=== PATIENT | female | born 1935 | race Caucasian/White ===

== ENCOUNTER 2017-10-24 22:15 | Emergency (ER) | payer MEDICARE, OTHER ==
[2017-10-24 22:35] VITALS: BP 135/74
--- NOTE | 2017-10-24 23:16 | EDM.PDOC ---
ED HPI GENERAL MEDICAL PROBLEM - General Chief Complaint: Neuro Symptoms/Deficits Stated Complaint: MEMORY ISSUES Time Seen by Provider: 10/24/17 23:00 Source of Information: Reports: Patient, Family History Limitations: Reports: Altered Mental Status, Other (Patient has significant dementia and short-term memory issues chronically.) - History of Present Illness INITIAL COMMENTS - FREE TEXT/NARRATIVE: 82-year-old female with worsening dementia, tonight was worse than her baseline when she didn't recognize her which she has not done before. She has improved and is now back to her regular confused state but it scared the family enough that they would like her evaluated. Severity: Moderate - Related Data Allergies Allergy/AdvReac Type Severity Reaction Status Date / Time No Known Allergies Allergy Verified 01/02/16 07:20 Home Meds: Home Meds Multivitamin [Multi-Vitamin Daily] 1 each PO DAILY 12/29/15 [History] Acetaminophen [Tylenol] 650 mg PO Q4H PRN tablet 01/04/16 [Rx] Past Medical History HEENT History: Reports: Impaired Vision Cardiovascular History: Reports: Other (See Below) Other Cardiovascular History: DYSLIPIDEMIA Respiratory History: Reports: None Gastrointestinal History: Reports: Other (See Below) Other Gastrointestinal History: chronic abdominal pain with negative work-up at [place] Genitourinary History: Reports: None ROUTE AGENT History: Reports: None, Musculoskeletal History: Reports: Arthritis Neurological History: Reports: None, Migraines, Other (See Below) Other Neuro History: short term memory issues Psychiatric History: Reports: Other (See Below) Other Psychiatric History: MEMORY LOSS Endocrine/Metabolic History: Reports: None Hematologic History: Reports: None Oncologic (Cancer) History: Reports: None Dermatologic History: Reports: None - Infectious Disease History Infectious Disease History: Reports: None - Past Surgical History Head Surgeries/Procedures: Reports: None HEENT Surgical History: Reports: Other (See Below) GI Surgical History: Reports: Colonoscopy, Hernia Repair/Other Female Surgical History: Reports: Hysterectomy Endocrine Surgical History: Reports: None Musculoskeletal Surgical History: Reports: None Social & Family History - Family History HEENT: Reports: Impaired Vision Cardiac: Reports: Hypertension Respiratory: Reports: None GI: Reports: None : Reports: None OBGYN: Reports: None Musculoskeletal: Reports: None Neurological: Reports: Dementia Psychiatric: Reports: None Endocrine/Metabolic: Reports: None Hematologic: Reports: None Immunologic: Reports: None Dermatologic: Reports: None Oncologic: Reports: None - Tobacco Use Smoking Status *Q: Former Smoker Years of Tobacco use: 15 Packs/Tins Daily: 1 Used Tobacco, but Quit: Yes Month/Year Tobacco Last Used: 1963 Second Hand Smoke Exposure: No - Caffeine Use Caffeine Use: Reports: Coffee - Recreational Drug Use Recreational Drug Use: No ED ROS GENERAL - Review of Systems Review Of Systems: See Below Constitutional: Denies: Fever Respiratory: Denies: Shortness of Breath Cardiovascular: Denies: Chest Pain GI/Abdominal: Denies: Abdominal Pain, Nausea, Vomiting : Reports: No Symptoms Neurological: Reports: Confusion. Denies: Headache ED EXAM, NEURO - Physical Exam Exam: See Below Exam Limited By: No Limitations General Appearance: Alert, No Apparent Distress Eye Exam: Bilateral Eye: EOMI, Normal Inspection Head Exam: Atraumatic Neck: Non-Tender Respiratory/Chest: No Respiratory Distress Cardiovascular: Regular Rate, Rhythm Neurological: Alert, No Motor/Sensory Deficits. No: Oriented x 3 (Somewhat disoriented to time, is oriented to person and place. She is calm, recognizes her family and is cooperative) Extremities: Normal Inspection. No: No Pedal Edema Psychiatric: Normal Affect, Normal Mood Skin Exam: Warm, Dry Course - Vital Signs Last Recorded V/S: Last Vital Signs Temp 96.9 F 10/24/17 22:47 Pulse 70 10/24/17 22:47 Resp 16 10/24/17 22:47 BP 135/74 10/24/17 22:47 Pulse Ox 98 10/24/17 22:47 - Orders/Labs/Meds Orders: Active Orders 24 hr Category Date Time Status Head wo Cont [CT] Stat Exams 10/24/17 23:15 Taken - Re-Assessments/Exams Free Text/Narrative Re-Assessment/Exam: 10/25/17 18:[address] without contrast showed small vessel disease as well as atrophy but nothing acute. She remained at her normal baseline and the family was comfortable taking her home. A formal neurologic evaluation was recommended if not already obtained, there may be some medication adjustments that may help. Departure - Departure Time of Disposition: 00:27 Disposition: Home, Self-Care 01 Condition: Fair Clinical Impression: Confusion Dementia Qualifiers: Dementia type: unspecified type Dementia behavioral disturbance: without behavioral disturbance Qualified Code(s): F03.90 - Unspecified dementia without behavioral disturbance - Discharge Information Instructions: Dementia, [id number] Referrals: PCP,None [Primary Care Provider] - Forms: ED Department Discharge Care Plan Goals: Consider a formal neurologic evaluation if one has not been done. Otherwise continue regular medications and follow up as needed. - My Orders Last 24 Hours: My Active Orders 10/24/17 23:15 Head wo Cont [CT] Stat - Assessment/Plan Last 24 Hours: My Active Orders 10/24/17 23:15 Head wo Cont [CT] Stat
== END 2017-10-25 00:27 | disposition home or self-care (01) ==
LOC: JP.ED 22:15
DX: F03.90 Unspecified dementia, unspecified severity, without behavioral disturbance, psychotic disturbance, mood disturbance, and anxiety (principal); R41.0 Disorientation, unspecified; Z79.899 Other long term (current) drug therapy; Z87.891 Personal history of nicotine dependence
CPT/HCPCS: 70450; 99284-25

== ENCOUNTER 2021-12-15 20:32 | Emergency (ER) | payer MEDICARE, OTHER ==
[2021-12-15] MEDS ORDERED: cefTRIAXone 1 GM in Sodium Chloride 0.9% 50 ML IV ONE (21:55)
[2021-12-15] MEDS ORDERED: Sodium Chloride 0.9% 10 ML Syringe FLUSH PRN (21:55)
[2021-12-15 23:08] VITALS: BP 158/102; PULSE 64
== END 2021-12-15 23:35 | disposition home or self-care (01) ==
LOC: JP.ED 20:32
DX: S61.451A Open bite of right hand, initial encounter (principal); L08.9 Local infection of the skin and subcutaneous tissue, unspecified; Z90.710 Acquired absence of both cervix and uterus; Z87.891 Personal history of nicotine dependence; W55.01XA Bitten by cat, initial encounter
CPT/HCPCS: 36415; 85025; 86140; 96365; 99281; 99283-25; J0696

== ENCOUNTER 2022-01-12 18:26 | Emergency (ER) | payer MEDICARE, OTHER ==
[2022-01-12 18:44] VITALS: BP 154/78; PULSE 74
[2022-01-12] MEDS ORDERED: Lidocaine 1% 5 ML VIAL INJECT ONE (19:09)
[2022-01-12] MEDS ORDERED: cefTRIAXone 2 GM, Lidocaine 1% 4.2 ML IM ONE ×2 (19:25)
[2022-01-12] MEDS ORDERED: Sodium Chloride 0.9% 10 ML Syringe FLUSH PRN (21:38)
[2022-01-12] MEDS ORDERED: cefTRIAXone 1 GM Vial ONE (21:51)
[2022-01-12] MEDS ORDERED: Lidocaine 1% 5 ML VIAL ONE (21:53)
== END 2022-01-12 21:50 ==
LOC: JP.ED 18:26
DX: S61.259A Open bite of unspecified finger without damage to nail, initial encounter (principal); L08.9 Local infection of the skin and subcutaneous tissue, unspecified; M00.9 Pyogenic arthritis, unspecified; W55.01XA Bitten by cat, initial encounter
CPT/HCPCS: 10021; 36415; 73110; 80048; 85025; 86140; 87040; 87070; 87077; 87205; 96372; 99284; J0696; 20610; 99283

== ENCOUNTER 2022-04-23 20:06 | Emergency (ER) | payer MEDICARE, OTHER ==
[2022-04-23 20:46] VITALS: BP 133/77; PULSE 62
[2022-04-23] MEDS: Diphtheria,Pertussis(Acell),Tetanus Vaccine 0.5 ML Syringe IM ONE (20:59)
[2022-04-23] MEDS: QUEtiapine 25 MG Tab PO ONE (20:59)
[2022-04-23] MEDS: Bacitracin Oint 1 GM U/D Packet TOP ONE (20:59)
== END 2022-04-23 21:17 | disposition home or self-care (01) ==
LOC: JP.ED 20:06
DX: S41.112A Laceration without foreign body of left upper arm, initial encounter (principal); Z23 Encounter for immunization; Z79.899 Other long term (current) drug therapy; Z90.710 Acquired absence of both cervix and uterus
CPT/HCPCS: 90471; 90715; 99283; A9270-GY

== ENCOUNTER 2023-04-27 14:17 | Emergency (ER) | payer MEDICARE, OTHER ==
[2023-04-27 14:47] VITALS: BP 126/66; PULSE 68
== END 2023-04-27 15:23 | disposition home or self-care (01) ==
LOC: JP.ED 14:17
DX: S81.811A Laceration without foreign body, right lower leg, initial encounter (principal)
CPT/HCPCS: 99282; 99283

== ENCOUNTER 2024-07-14 09:04 | Emergency (ER) | payer MEDICARE, OTHER ==
[2024-07-14 09:37] LABS: BASOPHILS PERCENT AUTO 0.5 % (0.1-1.3); EOSINOPHILS ABSOLUTE AUTO 0.07 K/uL (0.00-0.40); EOSINOPHILS PERCENT AUTO 1.8 % (0.0-5.4); HEMATOCRIT 35.3 % (34.3-46.0); HEMOGLOBIN 11.7 g/dL (11.2-15.5); IMMATURE GRAN PERCENT AUTO 0.3 % (0.0-0.7); LYMPHOCYTES ABSOLUTE AUTO 0.88 K/uL (0.8-3.3); LYMPHOCYTES PERCENT AUTO 23.2 % (11.4-47.7); MEAN CORPUSCULAR HEMOGLOBIN 30.2 pg (31.6-35.5); MEAN CORPUSCULAR HGB CONC 33.1 g/dL (31.6-35.5); MEAN CORPUSCULAR VOLUME 91.2 fL (81.4-99.0); MONOCYTES ABSOLUTE AUTO 0.48 K/uL (0.20-0.90); MONOCYTES PERCENT AUTO 12.6 % (3.3-12.6); NEUTROPHILS ABSOLUTE AUTO 2.34 K/uL (1.0-7.6); NEUTROPHILS PERCENT AUTO 61.6 % (40.0-78.1); PLATELET COUNT,PLT 173 K/uL (130-375); RED BLOOD CELL COUNT 3.87 M/uL (3.77-5.24); WHITE BLOOD CELL COUNT,WBC 3.8 K/uL (3.2-11.0)
[2024-07-14 09:38] LABS: BASOPHILS ABSOLUTE AUTO 0.02 K/uL (0.00-0.10); IMMATURE GRAN ABSOLUTE AUTO 0.01 K/uL (0.00-0.23)
[2024-07-14 09:59] LABS: A/G RATIO 0.9 (1.2-2.2); ALANINE AMINOTRANSFERASE,ALT 15 U/L (12-78); ALBUMIN 3.3 g/dL (3.4-5.0); ALKALINE PHOSPHATASE 89 U/L (46-116); ANION GAP 4.7 mmol/L (5.0-14.0); ASPARTATE AMNIOTRANSFERASE,AST 16 U/L (15-37); BILIRUBIN TOTAL 0.4 mg/dL (0.2-1.0); BLOOD UREA NITROGEN,BUN 19 mg/dL (7-18); CALCIUM 8.3 mg/dL (8.5-10.1); CARBON DIOXIDE,CO2 31 mmol/L (21-32); CHLORIDE,CL 106 mmol/L (100-108); CREATININE 1.5 mg/dL (0.6-1.0); ESTIMATED GFR 33 mL/min (>60); GLUCOSE RANDOM 79 mg/dL (74-106); POTASSIUM,K 4.5 mmol/L (3.6-5.2); PROTEIN TOTAL,TP 7.1 g/dL (6.4-8.2); SODIUM,NA 142 mmol/L (140-148)
[2024-07-14 10:27] LABS: APPEARANCE,URINE SLIGHTLY CLOUDY (CLEAR); BILIRUBIN,URINE NEGATIVE (NEGATIVE); COLOR,URINE YELLOW (YELLOW); GLUCOSE,URINE NEGATIVE (NEGATIVE); KETONES,URINE NEGATIVE (NEGATIVE); LEUKOCYTE ESTERASE,URINE MODERATE (NEGATIVE); NITRITE,URINE POSITIVE (NEGATIVE); OCCULT BLOOD,URINE NEGATIVE (NEGATIVE); PROTEIN,URINE 30 mg/dL (NEGATIVE); UROBILINOGEN,URINE 0.2 EU/dL (0.2-1.0)
[2024-07-14 10:34] LABS: AMORPHOUS SEDIMENT,URINE FEW; BACTERIA,URINE MANY; EPITHELIAL CELLS,URINE FEW; MUCUS,URINE NOT SEEN; WBC,URINE >100 (0-5)
[2024-07-14 10:43] VITALS: BP 133/76; PULSE 119
[2024-07-14] MEDS: cefTRIAXone 1 GM, Lidocaine 1% 2.1 ML IM ONE (11:42)
== END 2024-07-14 11:43 ==
LOC: JP.ED 09:04
DX: N30.00 Acute cystitis without hematuria (principal); E78.00 Pure hypercholesterolemia, unspecified; Z79.899 Other long term (current) drug therapy
CPT/HCPCS: 36415; 80053; 81001; 83605; 85025; 87086; 96372; 99285; J0696; 87088; 87186

== ENCOUNTER 2024-07-19 06:38 | Emergency (ER) | payer MEDICARE, OTHER ==
[2024-07-19 07:06] LABS: BASOPHILS ABSOLUTE AUTO 0.04 K/uL (0.00-0.10); BASOPHILS PERCENT AUTO 1.2 % (0.1-1.3); EOSINOPHILS ABSOLUTE AUTO 0.09 K/uL (0.00-0.40); EOSINOPHILS PERCENT AUTO 2.6 % (0.0-5.4); HEMATOCRIT 35.9 % (34.3-46.0); HEMOGLOBIN 11.8 g/dL (11.2-15.5); LYMPHOCYTES ABSOLUTE AUTO 1.02 K/uL (0.8-3.3); LYMPHOCYTES PERCENT AUTO 29.8 % (11.4-47.7); MEAN CORPUSCULAR HGB CONC 32.9 g/dL (31.6-35.5); MEAN CORPUSCULAR VOLUME 91.3 fL (81.4-99.0); MONOCYTES ABSOLUTE AUTO 0.41 K/uL (0.20-0.90); NEUTROPHILS ABSOLUTE AUTO 1.86 K/uL (1.0-7.6); NEUTROPHILS PERCENT AUTO 54.4 % (40.0-78.1); PLATELET COUNT,PLT 197 K/uL (130-375); RED BLOOD CELL COUNT 3.93 M/uL (3.77-5.24); WHITE BLOOD CELL COUNT,WBC 3.4 K/uL (3.2-11.0)
[2024-07-19 07:21] LABS: CALCIUM 8.6 mg/dL (8.5-10.1); CREATININE 1.2 mg/dL (0.6-1.0); EST CRCL DRUG DOSING (CG) 23.28 mL/min; POTASSIUM,K 4.2 mmol/L (3.6-5.2)
[2024-07-19 07:22] LABS: ANION GAP 9.2 mmol/L (5.0-14.0)
[2024-07-19 08:41] VITALS: BP 127/72; PULSE 63
== END 2024-07-19 08:25 | disposition home or self-care (01) ==
LOC: JP.ED 06:38
DX: S01.81XA Laceration without foreign body of other part of head, initial encounter (principal); S09.90XA Unspecified injury of head, initial encounter; F03.B0 Unspecified dementia, moderate, without behavioral disturbance, psychotic disturbance, mood disturbance, and anxiety; E78.00 Pure hypercholesterolemia, unspecified; Z79.899 Other long term (current) drug therapy; W01.198A Fall on same level from slipping, tripping and stumbling with subsequent striking against other object, initial encounter
CPT/HCPCS: 36415; 70450; 70486; 72125; 76377; 80048; 85025; 99284-25

== ENCOUNTER 2024-09-08 11:27 | Inpatient (IN) | payer MEDICARE, OTHER ==
[2024-09-08 11:52] LABS: BASOPHILS PERCENT AUTO 0.4 % (0.1-1.3); EOSINOPHILS ABSOLUTE AUTO 0.12 K/uL (0.00-0.40); EOSINOPHILS PERCENT AUTO 2.5 % (0.0-5.4); HEMATOCRIT 35.1 % (34.3-46.0); HEMOGLOBIN 11.5 g/dL (11.2-15.5); IMMATURE GRAN ABSOLUTE AUTO 0.04 K/uL (0.00-0.23); IMMATURE GRAN PERCENT AUTO 0.8 % (0.0-0.7); LYMPHOCYTES PERCENT AUTO 26.7 % (11.4-47.7); MEAN CORPUSCULAR HEMOGLOBIN 30.3 pg (31.6-35.5); MEAN CORPUSCULAR HGB CONC 32.8 g/dL (31.6-35.5); MEAN CORPUSCULAR VOLUME 92.6 fL (81.4-99.0); MONOCYTES ABSOLUTE AUTO 0.57 K/uL (0.20-0.90); MONOCYTES PERCENT AUTO 11.7 % (3.3-12.6); NEUTROPHILS ABSOLUTE AUTO 2.82 K/uL (1.0-7.6); NEUTROPHILS PERCENT AUTO 57.9 % (40.0-78.1); PLATELET COUNT,PLT 168 K/uL (130-375); RED BLOOD CELL COUNT 3.79 M/uL (3.77-5.24); WHITE BLOOD CELL COUNT,WBC 4.9 K/uL (3.2-11.0)
[2024-09-08] MEDS: Sodium Chloride 0.9% 500 ML IV ONE (11:52)
[2024-09-08] MEDS: Morphine 2 MG/ML SYRINGE IVPUSH ONE (11:53)
[2024-09-08 11:54] LABS: BASOPHILS ABSOLUTE AUTO 0.02 K/uL (0.00-0.10)
[2024-09-08 12:10] LABS: A/G RATIO 0.8 (1.2-2.2); ALANINE AMINOTRANSFERASE,ALT 23 U/L (12-78); ALBUMIN 3.1 g/dL (3.4-5.0); ALKALINE PHOSPHATASE 81 U/L (46-116); ANION GAP 8.3 mmol/L (5.0-14.0); ASPARTATE AMNIOTRANSFERASE,AST 23 U/L (15-37); BILIRUBIN TOTAL 0.3 mg/dL (0.2-1.0); BLOOD UREA NITROGEN,BUN 23 mg/dL (7-18); CALCIUM 8.6 mg/dL (8.5-10.1); CARBON DIOXIDE,CO2 29 mmol/L (21-32); CHLORIDE,CL 105 mmol/L (100-108); CREATININE 1.1 mg/dL (0.6-1.0); EST CRCL DRUG DOSING (CG) 27.96 mL/min; ESTIMATED GFR 48 mL/min (>60); GLUCOSE RANDOM 81 mg/dL (74-106); POTASSIUM,K 4.2 mmol/L (3.6-5.2); PROTEIN TOTAL,TP 7.1 g/dL (6.4-8.2); SODIUM,NA 142 mmol/L (140-148)
[2024-09-08] MEDS: Morphine 2 MG/ML SYRINGE IVPUSH PRN (15:04)
[2024-09-08] MEDS ORDERED: Midazolam 1 MG/ML 2 ML SDV ONE (16:43)
[2024-09-08] MEDS ORDERED: fentaNYL 100 MCG/2 ML SDV ONE (16:43)
[2024-09-08] MEDS ORDERED: Propofol 200 MG/20 ML SDV ONE (16:43)
[2024-09-08] MEDS: ceFAZolin 1 GM in Premix Bag 1 BAG IV ONE (16:55)
[2024-09-08] MEDS ORDERED: ePHEDrine 50 MG/ML SDV ONE (17:24)
[2024-09-08] MEDS ORDERED: Sodium Chloride 0.9% 10 ML ONE (17:24)
[2024-09-08] MEDS ORDERED: Acetaminophen/HYDROcodone 325-5 MG Tab PO PRN (18:14)
[2024-09-08] MEDS ORDERED: Sodium Chloride 0.9% 10 ML Syringe FLUSH PRN (19:26)
[2024-09-08] MEDS ORDERED: oxyCODONE 5 MG Tab PO PRN (19:26)
[2024-09-08] MEDS ORDERED: Ondansetron 4 MG/2 ML SDV IV PRN (19:26)
[2024-09-08] MEDS: Sodium Chloride 0.9% 1,000 ML IV SCH (21:14)
[2024-09-08] MEDS: Divalproex Sodium Delayed-Release 125 MG Cap.Sprink PO SCH (21:27)
[2024-09-08] MEDS: busPIRone 5 MG Tab PO SCH (21:28)
[2024-09-08] MEDS: Polyethylene Glycol 3350 Powder 17 GM Packet PO PRN (21:28)
[2024-09-08] MEDS: Melatonin 3 MG Tab PO SCH (21:28)
[2024-09-08] MEDS: QUEtiapine 25 MG Tab PO SCH (21:28)
[2024-09-09 06:01] LABS: HEMATOCRIT 31.9 % (34.3-46.0); HEMOGLOBIN 10.3 g/dL (11.2-15.5); MEAN CORPUSCULAR HEMOGLOBIN 30.3 pg (31.6-35.5); MEAN CORPUSCULAR HGB CONC 32.3 g/dL (31.6-35.5); MEAN CORPUSCULAR VOLUME 93.8 fL (81.4-99.0); RED BLOOD CELL COUNT 3.4 M/uL (3.77-5.24); WHITE BLOOD CELL COUNT,WBC 6.7 K/uL (3.2-11.0)
[2024-09-09] MEDS: HYDROmorphone 0.5 MG/0.5 ML Syringe IVPUSH PRN (06:09)
[2024-09-09 06:12] LABS: CALCIUM 8.1 mg/dL (8.5-10.1); EST CRCL DRUG DOSING (CG) 30.76 mL/min; MAGNESIUM 1.7 mg/dL (1.8-2.4); POTASSIUM,K 4.2 mmol/L (3.6-5.2)
[2024-09-09] MEDS: Aspirin 325 MG Tab.EC PO SCH (08:11)
[2024-09-09] MEDS: Sennosides 8.6 MG Tab PO SCH (08:12)
[2024-09-09] MEDS: Sertraline 25 MG Tab PO SCH (08:12)
[2024-09-09] MEDS: Magnesium Oxide 400 MG Tab PO SCH (08:14)
[2024-09-09] MEDS: Magnesium Sulf/Wat 2 GM/50 mL 2 GM in Premix Bag 1 BAG IV SCH (09:48)
[2024-09-09] MEDS: Acetaminophen 325 MG Tab PO PRN (13:32)
[2024-09-09] MEDS: Acetaminophen/Codeine 300-30 MG Tab PO PRN (16:30)
[2024-09-09] MEDS: Haloperidol Lactate 5 MG/ML SDV IVPUSH PRN (16:38)
[2024-09-09] MEDS ORDERED: Naloxone 0.4 MG/ML SDV IVPUSH PRN (19:32)
[2024-09-09] MEDS ORDERED: fentaNYL 50 MCG/ML SDV IVPUSH PRN (19:32)
[2024-09-09] MEDS: Ketorolac 15 MG/ML SDV IVPUSH PRN (20:31)
[2024-09-09] MEDS: Acetaminophen 650 MG Supp RECTAL SCH (20:36)
[2024-09-09] MEDS ORDERED: Acetaminophen 500 MG Tab PO SCH (21:00)
[2024-09-09] MEDS: Sodium Chloride 0.9% 500 ML IV ONE (23:36)
[2024-09-10] MEDS: Acetaminophen 325 MG Tab PO PRN (01:40)
[2024-09-10] MEDS ORDERED: Acetaminophen 650 MG Supp RECTAL PRN (01:44)
[2024-09-10 06:36] LABS: HEMATOCRIT 28.7 % (34.3-46.0); HEMOGLOBIN 9.4 g/dL (11.2-15.5); MEAN CORPUSCULAR HEMOGLOBIN 30.5 pg (31.6-35.5); MEAN CORPUSCULAR HGB CONC 32.8 g/dL (31.6-35.5); MEAN CORPUSCULAR VOLUME 93.2 fL (81.4-99.0); RED BLOOD CELL COUNT 3.08 M/uL (3.77-5.24); WHITE BLOOD CELL COUNT,WBC 6.3 K/uL (3.2-11.0)
[2024-09-10] MEDS: Acetaminophen 325 MG Tab PO SCH (10:33)
[2024-09-10 13:11] LABS: ANION GAP 6.1 mmol/L (5.0-14.0); CREATININE 1.1 mg/dL (0.6-1.0); EST CRCL DRUG DOSING (CG) 27.96 mL/min; MAGNESIUM 2.1 mg/dL (1.8-2.4)
[2024-09-10] MEDS ORDERED: Sodium Chloride 0.9% 1,000 ML IV SCH (13:15)
[2024-09-10] MEDS: Sodium Chloride 0.9% 1,000 ML IV SCH (23:08)
[2024-09-12] MEDS: traMADol 50 MG Tab PO PRN (01:24)
[2024-09-12] MEDS: Sodium Chloride 0.9% 1,000 ML IV SCH (07:45)
[2024-09-12] MEDS: Tamsulosin 0.4 MG Cap.ER PO SCH (13:57)
[2024-09-13] MEDS: Bisacodyl 10 MG Supp RECTAL PRN (07:50)
[2024-09-13] MEDS: Polyethylene Glycol 3350 Powder 17 GM Packet PO ONE (12:02)
[2024-09-14 05:45] VITALS: BP 146/86; PULSE 80
== END 2024-09-14 11:25 | disposition home or self-care (01) | DRG 522 ==
LOC: JP.ED 11:27 → JP.MS 13:51 → JP.ED 16:40
PROVIDERS: ADMIT Hospitalist; ATTEND Hospitalist
PROC: 0SRR0JA Replacement of Right Hip Joint, Femoral Surface with Synthetic Substitute, Uncemented, Open Approach (ICD-10-PCS; principal; 2024-09-08 16:00)
DX: S72.001A Fracture of unspecified part of neck of right femur, initial encounter for closed fracture (principal); E78.00 Pure hypercholesterolemia, unspecified; H54.7 Unspecified visual loss; M19.90 Unspecified osteoarthritis, unspecified site; G30.9 Alzheimer's disease, unspecified; Y92.019 Unspecified place in single-family (private) house as the place of occurrence of the external cause; F15.90 Other stimulant use, unspecified, uncomplicated; Z66 Do not resuscitate; W19.XXXA Unspecified fall, initial encounter; F02.C0 Dementia in other diseases classified elsewhere, severe, without behavioral disturbance, psychotic disturbance, mood disturbance, and anxiety; R33.9 Retention of urine, unspecified; D64.9 Anemia, unspecified; Z79.899 Other long term (current) drug therapy; Z98.890 Other specified postprocedural states; Z90.710 Acquired absence of both cervix and uterus; Y93.9 Activity, unspecified; Y92.009 Unspecified place in unspecified non-institutional (private) residence as the place of occurrence of the external cause
CPT/HCPCS: 01210-QZ; 36415; 51701; 51798; 70450; 70450-26; 72170; 72170-26; 73080-26-RT; 73080-RT; 73502-26-RT; 73502-RT; 80048; 80053; 83735; 85018; 85025; 85027; 93005; 93010; 96361; 96374; 97162-GP; 97530-GP; 99223; 99233; 99238; 99285; 99285-25; A9270-GY; C1758; C1776; J0689; J1630; J1885; J2250; J2270; J2704; J3010; J3475; J7030

== ENCOUNTER 2024-12-01 19:01 | Emergency (ER) | payer MEDICARE, OTHER ==
[2024-12-01 19:13] VITALS: BP 149/82; PULSE 67
[2024-12-01] MEDS ORDERED: Acetaminophen 500 MG Tab PO ONE (19:59)
== END 2024-12-01 20:26 | disposition home or self-care (01) ==
LOC: JP.ED 19:01
DX: S42.001A Fracture of unspecified part of right clavicle, initial encounter for closed fracture (principal); S70.01XA Contusion of right hip, initial encounter; Z79.899 Other long term (current) drug therapy; Z90.710 Acquired absence of both cervix and uterus; W07.XXXA Fall from chair, initial encounter
CPT/HCPCS: 73030-26-RT; 73030-RT; 73060-26-RT; 73060-RT; 73502-26-RT; 73502-RT; 99284

== ENCOUNTER 2024-12-03 19:16 | Emergency (ER) | payer MEDICARE, OTHER ==
[2024-12-03 19:23] VITALS: BP 149/99; PULSE 72
== END 2024-12-03 21:30 | disposition home or self-care (01) ==
LOC: JP.ED 19:16
DX: S42.031A Displaced fracture of lateral end of right clavicle, initial encounter for closed fracture (principal); S00.03XA Contusion of scalp, initial encounter; Z79.899 Other long term (current) drug therapy; E78.00 Pure hypercholesterolemia, unspecified; W22.8XXA Striking against or struck by other objects, initial encounter; Y93.89 Activity, other specified
CPT/HCPCS: 70450; 70450-26; 99283; 99284